=== PATIENT | female | born 1945 | race Caucasian/White ===

== ENCOUNTER 2016-05-14 11:16 | Emergency (ER) | payer MEDICARE, BC ==
[2016-05-14] MEDS ORDERED: ASPIRIN 81 MG TABLET, CHEWABLE PO ONE (11:38)
--- NOTE | 2016-05-14 11:38 | ER Document Report ---
ED Cardiac <GIDEON LANDERS - Last Filed: 05/14/16 18:19> - General Time seen by provider: 11:38 Mode of Arrival: Ambulatory Information source: Patient TRAVEL OUTSIDE OF THE [place] IN LAST 30 DAYS: No <DARIN ROTH - Last Filed: 05/15/16 10:22> - General Chief Complaint: Chest Pain Stated Complaint: CHEST PAIN Notes: 70-year-old nondiabetic, nonhypertensive, hypothroid with nodule (neg biopsty) non-hyperlipidemic(dr. can says it is normal for her family- no rx needed), smoked in high school, female came from an urgent care today. She is complaining of retrosternal midline chest pain that radiates through to the back and dizziness. She had an episode of vertigo on Tuesday afternoon. When she moves her head it does give her vertigo. The chest pain started tuesday night when she laid down to go to sleep. It was associated with pounding and palpitations she did not rest. Chest pain has been constant since then and the palpitations reoccurred last night. Hx GERD and Hiatel Hernia. Family HX: No CAD (DARIN ROTH) - Related Data Allergies/Adverse Reactions: Sulfa (Sulfonamide Antibiotics) Allergy (Verified 05/14/16 11:20) Hives Past Medical History - General Information source: Patient - Social History Smoking Status: Former Smoker Frequency of alcohol use: Occasional Drug Abuse: None Lives with: Family Family History: Reviewed & Not Pertinent. denies: CAD Patient has suicidal ideation: No Patient has homicidal ideation: No - Medical History Medical History: Negative EENT Medical History: Reports: Other - Thyroid nodule and hypothyroid Renal/ Medical History: Denies: Hx Peritoneal Dialysis GI Medical History: Reports: Hx Gastroesophageal Reflux Disease, Hx Hiatal Hernia Past Surgical History: Reports: Hx Genitourinary Surgery - Right nephrectomy, Hx Hysterectomy, Other - Breast reduction <DARIN ROTH - Last Filed: 05/15/16 10:22> Review of Systems - Review of Systems Constitutional: No symptoms reported EENT: No symptoms reported Cardiovascular: See HPI Respiratory: No symptoms reported Gastrointestinal: No symptoms reported Genitourinary: No symptoms reported Female Genitourinary: No symptoms reported Musculoskeletal: No symptoms reported Skin: No symptoms reported Hematologic/Lymphatic: No symptoms reported Neurological/Psychological: See HPI <DARIN ROTH - Last Filed: 05/15/16 10:22> Physical Exam - Vital signs Interpretation: Normal - General General appearance: Appears well, Alert, Anxious In distress: None - HEENT Head: Normocephalic, Atraumatic Eyes: Normal Conjunctiva: Normal Extraocular movements intact: Yes Pupils: PERRL Nerve palsy: No Mucous membranes: Normal Pharynx: Normal Neck: Supple. No: Lymphadenopathy - Respiratory Respiratory status: No respiratory distress Chest status: Nontender Breath sounds: Normal Chest palpation: Normal - Cardiovascular Rhythm: Regular Heart sounds: Normal auscultation Murmur: No - Abdominal Inspection: Normal Distension: No distension Bowel sounds: Normal Tenderness: Nontender. No: Tender Organomegaly: No organomegaly - Back Back: Normal, Nontender - Extremities General upper extremity: Normal inspection, Nontender, Normal color, Normal ROM , Normal temperature General lower extremity: Normal inspection, Nontender, Normal color, Normal ROM , Normal temperature, Normal weight bearing. No: Hunter's sign - Neurological Neuro grossly intact: Yes Cognition: Normal Orientation: AAOx4 [place] Coma Scale Eye Opening: Spontaneous Cheri Coma Scale Verbal: Oriented Cheri Coma Scale Motor: Obeys Commands Cheri Coma Scale Total: 15 Speech: Normal Motor strength normal: LUE, RUE, LLE, RLE Sensory: Normal - Psychological Associated symptoms: Normal affect, Normal mood - Skin Skin Temperature: Warm Skin Moisture: Dry Skin Color: Normal Skin irregularity: negative: Rash <DARIN ROTH - Last Filed: 05/15/16 10:22> - Vital signs Vitals: Temp Pulse Resp BP Pulse Ox 98.4 F 77 18 167/75 H 97 05/14/16 11:26 05/14/16 11:26 05/14/16 11:26 05/14/16 11:26 05/14/16 11:26 Course - Laboratory Result Diagrams: 05/14/16 12:00 05/14/16 12:00 <GIDEON LANDERS - Last Filed: 05/14/16 18:19> - Laboratory Result Diagrams: 05/14/16 12:00 05/14/16 12:00 <DARIN ROTH - Last Filed: 05/15/16 10:22> - Re-evaluation Re-evalutation: 05/14/16 18:19 I reevaluated the patient she currently is having no chest discomfort. I discussed cardiac risk with her and a Hearts3 score of 2 and Mace risks. She voices understanding and deferred admission wanting to follow-up with Dr. Can on Tuesday and getting a stress test done through her primary care physician. She will return if she is worsening otherwise. She will increase her Nexium to 20 mg twice a day and be given a prescription for nitroglycerin, returning if worsening otherwise (GIDEON LANDERS) 05/14/16 13:[address] landers who recommends a CT of the chest with IV contrast and GI concktail. EKG NSR, no ectopy. 05/14/16 14:41 Patient had severe allergic reaction to IV contrast and she does not want the IV contrast so Dr. Landers suggested getting a CT of the chest without contrast. 05/14/16 15:21 CT of the chest is negative no aneurysm. 05/14/16 16:37 no relief from gi cocktail. ntg 0.4 mg x 1 pain 4.5 to 2/5, 2nd ntg 0.4 mg to 1/ 5. dr. landers informed. 05/14/16 17:07 pain is 0/5. 2nd troponin has been sent to lab. 2nd EKG with no change, NSR 05/14/16 18:30 dr landers discussed with pt, and they decided that she can be discharged with follow up with dr. can in [place] on tuesday, will give all labs etc copies for dr. can. will inxrease the PPI to 20 mg bid., and NTG sublinqual. (DARIN ROTH) - Vital Signs Vital signs: Temp Pulse Resp BP Pulse Ox 98.4 F 77 14 113/79 97 05/14/16 11:26 05/14/16 11:26 05/14/16 20:51 05/14/16 20:51 05/14/16 20:51 - Laboratory Laboratory results interpreted by me: 05/14/16 12:00 BUN 21 H Est GFR (Non-Af Amer) 55 L Discharge <GIDEON LANDERS - Last Filed: 05/14/16 18:19> <DARIN ROTH - Last Filed: 05/15/16 10:22> - Discharge Clinical Impression: Elevated blood pressure reading Chest pain Qualifiers: Chest pain type: unspecified Qualified Code(s): R07.9 - Chest pain, unspecified Condition: Good Disposition: HOME, SELF-CARE Instructions: Aspirin (Cardiac) ([facility]), Chest Pain of Unclear Cause ([facility]), Nitrates ([facility]), Prilosec (Acid Pump Inhibitor) ([facility]) Additional Instructions: see dr. can at [facility] on tuesday and set up stress test return to er if chest pain does relieve with nitroglycerin, you may take 1 every 5 minutes up to 3 doses stop the starbucks coffee if the stress test is negative, rec. EGD if the 20mg nexium twice a day for 2 weeks does not relieve the symptoms Please complete the patient satisfaction survey if you get one, and return it.. If you do not receive a survey, then you can go to the [facility] website, [email or web address] and place your comments about your very good care. Thank you very much. It was a pleasure being your medical provider today. Prescriptions: Esomeprazole Magnesium [Nexium] 20 mg PO BID #60 capsule. Nitroglycerin 0.4 mg SL ASDIR PRN #1 [id number] PRN Reason: Referrals: ROSA M CAN MD [Primary Care Provider] - 05/17/16
[2016-05-14 12:12] LABS: ABSOLUTE BASOPHILS # (AUTO) 0.1 10^3/uL (0.0-0.2); ABSOLUTE EOSINOPHILS # (AUTO) 0.1 10^3/uL (0.0-0.6); ABSOLUTE LYMPHOCYTES (AUTO) 1.4 10^3/uL (0.5-4.7); ABSOLUTE MONOCYTES (AUTO) 0.5 10^3/uL (0.1-1.4); ABSOLUTE NEUT (AUTO) 3.3 10^3/uL (1.7-8.2); BASOPHILS % (AUTO) 1.2 % (0-2); EOSINOPHILS % (AUTO) 1.1 % (0-6); HEMATOCRIT 41.2 % (36.0-47.0); HEMOGLOBIN 13.9 g/dL (12.0-15.5); HGB HCT DIFFERENCE 0.5; LYMPHOCYTES % (AUTO) 25.6 % (13-45); MEAN CORPUSCULAR HEMOGLOBIN 31.2 pg (27.0-33.4); MEAN CORPUSCULAR HGB CONC 33.9 g/dL (32.0-36.0); MEAN CORPUSCULAR VOLUME 92 fl (80-97); MONOCYTES % (AUTO) 9.2 % (3-13); RED BLOOD COUNT 4.47 10^6/uL (3.72-5.28); RED CELL DISTRIBUTION WIDTH 13.8 % (11.5-14.0); SEGMENTED NEUTROPHILS % (AUTO) 62.9 % (42-78); WHITE BLOOD COUNT 5.3 10^3/uL (4.0-10.5)
[2016-05-14 12:33] LABS: ALANINE AMINOTRANSFERASE 24 U/L (9-52); ALBUMIN 4.4 g/dL (3.5-5.0); ALKALINE PHOSPHATASE 72 U/L (38-126); ANION GAP 12 (5-19); ASPARTATE AMINO TRANSFERASE 22 U/L (14-36); BILIRUBIN,DIRECT 0.3 mg/dL (0.0-0.4); BILIRUBIN,TOTAL 0.5 mg/dL (0.2-1.3); BLOOD UREA NITROGEN 21 mg/dL (7-20); CALCIUM 9.3 mg/dL (8.4-10.2); CARBON DIOXIDE 27 mmol/L (22-30); CHLORIDE 104 mmol/L (98-107); CREATINE KINASE 56 U/L (30-135); GLUCOSE 96 mg/dL (75-110); MAGNESIUM 2.1 mg/dL (1.6-2.3); SODIUM 143.1 mmol/L (137-145); TOTAL PROTEIN 7.9 g/dL (6.3-8.2)
[2016-05-14 12:43] LABS: CREATINE KINASE MB 0.67 ng/mL (<4.55)
[2016-05-14 12:44] LABS: TROPONIN I < 0.012 ng/mL
[2016-05-14] MEDS ORDERED: MAG HYDROX/AL HYDROX/SIMETH SUSP 30 ML UDCUP PO ONE (13:54)
[2016-05-14] MEDS ORDERED: LIDOCAINE 2% VISCOUS SOLN 20 ML UDCUP PO ONE (13:54)
[2016-05-14] MEDS: NITROGLYCERIN 0.4 MG/TAB 25 TAB/BOTTLE SL PRN ×2 (16:20→16:33)
[2016-05-14] MEDS ORDERED: ACETAMINOPHEN 325 MG TABLET PO ONE (16:37)
[2016-05-14] MEDS ORDERED: PANTOPRAZOLE SODIUM 40 MG VIAL IV ONE (18:51)
[2016-05-14 20:59] VITALS: BP 113/79
--- NOTE | 2016-05-14 22:29 | EKG REPORT ---
SEVERITY:- ABNORMAL ECG - SINUS RHYTHM LEFT ANTERIOR FASCICULAR BLOCK : Confirmed by: Kaur Lou MD 14-May-2016 22:28:36
--- NOTE | 2016-05-14 22:29 | EKG REPORT ---
SEVERITY:- ABNORMAL ECG - SINUS RHYTHM LEFT ANTERIOR FASCICULAR BLOCK : Confirmed by: Kaur Lou MD 14-May-2016 22:28:46
== END 2016-05-14 19:13 | disposition home or self-care (01) ==
LOC: ER 11:16
DX: R03.0 Elevated blood-pressure reading, without diagnosis of hypertension (principal); R07.9 Chest pain, unspecified; K21.9 Gastro-esophageal reflux disease without esophagitis; Z88.2 Allergy status to sulfonamides; Z90.710 Acquired absence of both cervix and uterus; Z87.891 Personal history of nicotine dependence
CPT/HCPCS: 93005; 99285; 96374; 36415; 82553; 82550; 83735; 85025; 80053; 84484; 71010; 71250; 93010; A9270 ×2; J3490; C9113; S0164

== ENCOUNTER 2016-09-29 09:31 | Day surgery (SDC) | payer MEDICARE, BC ==
[2016-09-29] MEDS ORDERED: ONDANSETRON HCL INJ/PF 4 MG/2 ML SDV ONE (10:17)
[2016-09-29] MEDS ORDERED: DIPHENHYDRAMINE HCL 50 MG/ML VIAL ONE (10:17)
[2016-09-29] MEDS ORDERED: MIDAZOLAM 2 MG/2 ML INJ ONE (10:18)
[2016-09-29] MEDS ORDERED: NALOXONE HCL INJ/PF 0.4 MG/1 ML SDV ONE (10:18)
[2016-09-29] MEDS ORDERED: FENTANYL CITRATE INJ/PF 100 MCG/2 ML AMPUL ONE (10:19)
[2016-09-29] MEDS ORDERED: GLUCAGON,HUMAN RECOMB 1 MG INJ ONE (10:19)
[2016-09-29] MEDS ORDERED: FLUMAZENIL INJ 0.5 MG/5 ML VIAL ONE (10:19)
[2016-09-29] MEDS ORDERED: EPINEPHRINE INJ 1 MG/10 ML DISP.SYRIN ONE (10:19)
[2016-09-29] MEDS: MIDAZOLAM 2 MG/2 ML INJ ONE ×2 (10:36→10:40)
--- NOTE | 2016-09-29 10:51 | Operative Report ---
Operative Report DATE OF SURGERY: 09/29/16 Operative Report: The risks benefits and alternatives of the procedure explained to the patient in detail and informed consent is obtained.A GIF Olympus video scope was inserted into the patient's mouth and hypopharynx, the esophagus is identified intubated and insufflated, the scope was then advanced through the esophagus stomach and duodenum, retroflexion maneuver is done ,the esophagus stomach and first and second portions of the duodenum examined PREOPERATIVE DIAGNOSIS: Noncardiac chest pain question esophageal spasm. POSTOPERATIVE DIAGNOSIS: Gastroesophageal reflux disease. Hiatal hernia. Gastritis status post biopsy rule out Helicobacter pylori OPERATION: EGD with biopsy SURGEON: JAKI MACKAY ANESTHESIA: Moderate Sedation - 4 mg of Versed, 50 mcg of fentanyl. Conscious sedation monitoring time 30 minutes. TISSUE REMOVED OR ALTERED: Gastric mucosal specimen obtained COMPLICATIONS: None. ESTIMATED BLOOD LOSS: None. INTRAOPERATIVE FINDINGS: As described above. PROCEDURE: Patient tolerated the procedure well. No immediate postprocedure complications are noted. Patient discharged in good condition. Discharge date 09/29/2016. Discharge diet: Regular. Discharge activity: Regular. 2-3 week follow-up to discuss findings. Patient is instructed to call the office should there be any further problems or questions. We will wait on biopsies.
[2016-09-29 11:46] VITALS: BP 111/68
== END 2016-09-29 11:50 | disposition home or self-care (01) ==
LOC: END 09:31
PROVIDERS: ATTEND Internal Medicine Gastroenterology
PROC: 0DB68ZX Excision of Stomach, Via Natural or Artificial Opening Endoscopic, Diagnostic (ICD-10-PCS; principal; 2016-09-29 10:00)
DX: K21.9 Gastro-esophageal reflux disease without esophagitis (principal); K44.9 Diaphragmatic hernia without obstruction or gangrene; K29.70 Gastritis, unspecified, without bleeding; Z79.899 Other long term (current) drug therapy; Z88.2 Allergy status to sulfonamides; Z86.010 Personal history of colon polyps
CPT/HCPCS: 43239; 88305 ×2; J2250; J3010; J0171; J1200; J1610; J2310; J2405; J3490

== ENCOUNTER 2019-02-14 10:04 | Day surgery (SDC) | payer MEDICARE, BC ==
[~2019-02-14 10:04] MED LIST: CHONDR SU A NA/HYALUR INTRAOC KIT (SURGICARE) ONE; EPINEPHRINE INJ/PF 1 MG/1 ML AMPULE ONE; KETOROLAC TROMETHAMINE 0.45% 4 DROP/0.4 ML DROPERETTE OS PRN; LIDOCAINE 1%/PHENYLEPHRINE 1.5% 1 ML VIAL ONE
[2019-02-14] MEDS ORDERED: ONDANSETRON HCL INJ/PF 4 MG/2 ML SDV ONE (10:06)
[2019-02-14] MEDS ORDERED: FENTANYL CITRATE INJ/PF 100 MCG/2 ML AMPUL ONE (10:07)
[2019-02-14] MEDS ORDERED: MIDAZOLAM 2 MG/2 ML INJ ONE (10:07)
[2019-02-14] MEDS: TROPICAMIDE 1% OPH SOLN 15 ML OS PRN ×4 (10:28→10:48)
[2019-02-14] MEDS: CYCLOPENTOLATE 0.2%/PHENYLEPHRINE 1% OPH SOLN 2 ML OS PRN ×4 (10:28→10:48)
[2019-02-14] MEDS: BESIFLOXACIN HCL 0.6% OPH SUSP 5 ML BOTTLE OS PRN ×5 (10:28→11:18)
[2019-02-14] MEDS: TETRACAINE HCL 0.5% OPH SOLN 4 ML OS PRN ×4 (10:29→11:01)
[2019-02-14] MEDS: DORZOLAMIDE HCL 2%/TIMOLOL MALEAT 0.5% OPH SOLN 10 ML OS PRN ×2 (11:18)
== END 2019-02-14 11:59 | disposition home or self-care (01) ==
LOC: SC 10:04
PROVIDERS: ATTEND Ophthalmology
DX: H25.12 Age-related nuclear cataract, left eye (principal); E03.9 Hypothyroidism, unspecified; Z79.899 Other long term (current) drug therapy; Z88.2 Allergy status to sulfonamides
CPT/HCPCS: 66984; V2632; J2250; J3490 ×2; A9270; J0171; J3010; J2405; J2370; 142

== ENCOUNTER 2019-02-28 09:58 | Day surgery (SDC) | payer MEDICARE, BC ==
[~2019-02-28 09:58] MED LIST changes: +KETOROLAC TROMETHAMINE 0.45% 4 DROP/0.4 ML DROPERETTE OD PRN; -KETOROLAC TROMETHAMINE 0.45% 4 DROP/0.4 ML DROPERETTE OS PRN
[2019-02-28] MEDS: BESIFLOXACIN HCL 0.6% OPH SUSP 5 ML BOTTLE OD PRN ×4 (10:38→11:27)
[2019-02-28] MEDS: TETRACAINE HCL 0.5% OPH SOLN 4 ML OD PRN ×3 (10:38→11:09)
[2019-02-28] MEDS: CYCLOPENTOLATE 0.2%/PHENYLEPHRINE 1% OPH SOLN 2 ML OD PRN ×3 (10:38→10:58)
[2019-02-28] MEDS: TROPICAMIDE 1% OPH SOLN 15 ML OD PRN ×3 (10:38→10:58)
[2019-02-28] MEDS ORDERED: MIDAZOLAM 2 MG/2 ML INJ ONE (10:56)
[2019-02-28] MEDS ORDERED: FENTANYL CITRATE INJ/PF 100 MCG/2 ML AMPUL ONE (10:56)
[2019-02-28] MEDS ORDERED: ONDANSETRON HCL INJ/PF 4 MG/2 ML SDV ONE (10:56)
[2019-02-28] MEDS: DORZOLAMIDE HCL 2%/TIMOLOL MALEAT 0.5% OPH SOLN 10 ML OD PRN ×2 (11:27)
--- NOTE | 2019-02-28 15:12 | Operative Report ---
Operative Report-[facility] Operative Report: DATE OF SURGERY: February 28, 2019 PREOPERATIVE DIAGNOSIS: NUCLEAR CATARACT, RIGHT EYE. POSTOPERATIVE DIAGNOSIS: NUCLEAR CATARACT, RIGHT EYE. PROCEDURE PERFORMED: PHACOEMULSIFICATION WITH POSTERIOR CHAMBER INTRAOCULAR LENS IMPLANT, RIGHT EYE. SURGEON: Ap Deutsch DO MEDICATIONS AND ANESTHESIA: Versed: IV Versed Tetracaine drops: 1 to 2 drops given as needed COMPLICATION: [None] INDICATIONS FOR SURGERY: Medical necessity: Best corrected visual acuity worse than 20/40 secondary to cataracts with impairment of ability to carry out needs or desired activities, blurred vision, visual distortion, reduced contrast sensitivity and/or glare with association functional impairment and supporting documentation/testing, and cataracts causing symptomatic impairment of visual functions not corrected with tolerable changes in glasses or contact lenses interfering with activities of daily life. PROCEDURE: Consent: The risks, benefits and alternatives of this procedures was discussed with the patient. The patient read and signed the consent forms, was identified and was seated in the exam chair. IOL: MX 60 E IOL Diopters: 26.0 Phacoemulsification with posterior chamber intraocular lens implant: The face was prepped with 5% povidone iodine solution, and a few drops of 5% povidone iodine solution was instilled into the inferior fornix. A non-fenestrated drape was placed over the eye and the lids were parted with the speculum. A paracentesis was made with a 15 degree blade, and 1% lidocaine MPF followed by viscoelastic was injected into the anterior chamber. A 2.4 mm metal micro- keratome was used to create a temporal clear corneal incision. A circular anterior capsulorrhexis was created, followed by hydro-dissection and hydro- delineation. The phacoemulsification hand piece was inserted and the nucleus was removed with the Phaco chop technique. The irrigation-aspiration hand piece was used to remove the residual cortex, and vacuum the posterior capsule. The capsular bag was inflated and viscoelastic and the above-mentioned IOL was injected into the eye with care to insert both leaning and trailing haptics in the capsular bag. The irrigation/aspiration hand piece was reinserted to remove residual viscoelastic from the capsular bag and anterior chamber. The corneal incision was hydrated, and anterior chamber was inflated with sterile BSS via the paracentesis site, and found to be watertight. Postop medication: 1 drop of prednisolone into operative by followed by 1 drop of Cosopt into operative eye followed by 1 drop of Besivance intraoperative by other: []
== END 2019-02-28 12:10 | disposition home or self-care (01) ==
LOC: SC 09:58
PROVIDERS: ATTEND Ophthalmology
DX: H25.11 Age-related nuclear cataract, right eye (principal); Z98.42 Cataract extraction status, left eye; Z79.899 Other long term (current) drug therapy; Z88.2 Allergy status to sulfonamides; E03.9 Hypothyroidism, unspecified; K21.9 Gastro-esophageal reflux disease without esophagitis; Z90.5 Acquired absence of kidney
CPT/HCPCS: 66984; V2632; J2250; J3490 ×2; A9270; J0171; J3010; J2405; J2370; 142